=== PATIENT | female | born 1975 | race Caucasian/White ===

== ENCOUNTER 2018-12-19 01:13 | Emergency (ER) | payer OTHER ==
[~2018-12-19] VITALS: Ht 167.6 cm; Wt 85.0 kg
[2018-12-19 01:16] VITALS: Ht 167.6 cm; Wt 85.0 kg
[2018-12-19 02:53] VITALS: BP 143/81; PULSE 98; RESP 23
[2018-12-19] MEDS ORDERED: ALPRAZOLAM 0.25 MG TAB PO ONE (03:00)
== END 2018-12-19 03:00 | disposition home or self-care (01) ==
LOC: E/R 01:13
DX: F41.9 Anxiety disorder, unspecified (principal)
CPT/HCPCS: 93005